=== PATIENT | male | born 1955 | race Caucasian/White ===

== ENCOUNTER → 2024-09-30 | Outpatient (CLI) | payer MEDICARE ==
[~2024-09-30] MED LIST: BUPR100ER PO; ISOMON30 PO
[2024-10-01 12:45] LABS: Adenovirus F 40/41 Not Detected (NOT DETECT); Astrovirus Not Detected (NOT DETECT); Campylobacter Sp Not Detected (NOT DETECT); Cryptosporidium Not Detected (NOT DETECT); Cyclospora Cayetanensis Not Detected (NOT DETECT); E. Coli O157 Not Detected (NOT DETECT); Entamoeba Histolytica Not Detected (NOT DETECT); Enteroaggregative E. coli-EAEC Not Detected (NOT DETECT); Enteropathogenic E. coli-EPEC Not Detected (NOT DETECT); Enterotoxigenic E. coli-ETEC Not Detected (NOT DETECT); Giardia Lamblia Not Detected (NOT DETECT); Norovirus GI/GII Not Detected (NOT DETECT); Plesiomonas Shigelloides Not Detected (NOT DETECT); Rotavirus A Not Detected (NOT DETECT); Salmonella Sp Not Detected (NOT DETECT); Sapovirus Not Detected (NOT DETECT); Shiga Toxin-prod E. coli-STEC Not Detected (NOT DETECT); Shigella/Enteroin E. coli-EIEC Not Detected (NOT DETECT); Vibrio Cholerae Not Detected (NOT DETECT); Vibrio Sp Not Detected (NOT DETECT); Yersinia Enterocolitica Not Detected (NOT DETECT)
[2024-10-05 21:31] LABS: CALPROTECTIN,FECAL 9 ug/g (<=49)
== END ==
LOC: LAB 09:49 → LAB SHORT 09:49
PROVIDERS: Student in an Organized Health Care Education/Training Program
DX: K52.9 Noninfective gastroenteritis and colitis, unspecified (principal)
CPT/HCPCS: 83993; 87507

== ENCOUNTER 2024-12-30 08:39 | Inpatient (IN) | payer MEDICARE ==
[~2024-12-30] VITALS: Ht 175.3 cm; Wt 87.3 kg
[2024-12-30] VITALS (11 sets, daily range): BP systolic 56–103; BP diastolic 35–75
[2024-12-30] MEDS ORDERED: Aspirin 300 MG Supp PR ONE (09:25)
[2024-12-30] MEDS ORDERED: Verapamil HCL 2.5 MG/ML 2ML Injection ONE (09:27)
[2024-12-30] MEDS ORDERED: Heparin Sodium 1000 Units/ML 10ML MDV ONE ×3 (09:27→10:45)
[2024-12-30] MEDS ORDERED: NS 1,000 ML IV ONE ×6 (09:28→18:00)
[2024-12-30] MEDS ORDERED: Phenylephrine HCl 100 MCG/ML-NS 10MLSYR (1MG/10ML) ONE (09:28)
[2024-12-30] MEDS ORDERED: Nitroglycerin 2 MG/20 ML BTL ONE (09:28)
[2024-12-30] MEDS ORDERED: NS 250 ML IV ONE (09:28)
[2024-12-30] MEDS ORDERED: Atropine Sulfate 0.1 MG/ML 10ML SYR ONE ×2 (09:28→10:37)
[2024-12-30] MEDS ORDERED: NiCARdipine HCL 1,000 MCG/5 ML SYR ONE (09:29)
[2024-12-30 09:35] LABS: BASOPHILS ABSOLUTE AUTO 0.04 K/mm3 (0.00-0.23); BASOPHILS PERCENT AUTO 1 % (0-2); EOSINOPHILS ABSOLUTE AUTO 0.09 K/mm3 (0.00-0.68); EOSINOPHILS PERCENT AUTO 1 % (0-6); Hematocrit 49.7 % (37.0-53.0); Hemoglobin 16.3 g/dL (13.5-17.5); IMMATURE GRAN ABSOLUTE AUTO 0.06 K/mm3 (0.00-0.10); IMMATURE GRAN PERCENT AUTO 1 % (0-1); LYMPHOCYTES ABSOLUTE AUTO 2.93 K/mm3 (0.84-5.20); LYMPHOCYTES PERCENT AUTO 45 % (21-46); MONOCYTES ABSOLUTE AUTO 0.94 K/mm3 (0.16-1.47); MONOCYTES PERCENT AUTO 14 % (4-13); Mean Corpuscular HGB 30.4 pg (26.0-34.0); Mean Corpuscular HGB Conc 32.8 g/dL (31.5-36.5); Mean Corpuscular Volume 93 fL (80-100); Mean Platelet Volume 10.9 fL (9.1-12.4); NEUTROPHILS ABSOLUTE AUTO 2.49 K/mm3 (1.96-9.15); NEUTROPHILS PERCENT AUTO 38 % (41-73); NRBC ABSOLUTE 0.02 K/mm3 (0.00-0.02); NRBC Auto 0.3 /100 WBC (0.0-0.2); Platelet Count 189 K/mm3 (150-400); RDW Coefficient Variation 12.8 % (11.7-14.2); RDW Standard Deviation 43.4 fL (35.1-46.3); Red Blood Cell Count 5.36 M/mm3 (4.30-5.90); White Blood Cell Count 6.55 K/mm3 (4.00-11.30)
[2024-12-30] MEDS ORDERED: FentaNYL Citrate 50 MCG/ML 2 ML Injection ONE ×6 (09:41→13:57)
[2024-12-30] MEDS ORDERED: Midazolam HCl 1MG / ML 2ML Vial ONE ×7 (09:42→11:45)
[2024-12-30] MEDS ORDERED: Amiodarone HCl 50 MG / ML 3 ML Amp ONE (09:48)
[2024-12-30 09:50] LABS: Alanine Aminotransfer (ALT/SGP 74 U/L (12-78); Albumin, Blood 3.4 g/dL (3.4-5.0); Alk Phos 83 U/L (50-136); Anion Gap 9 mmol/L (3-11); Aspartate Aminotrans (AST/SGOT 71 U/L (12-37); Bilirubin, Total 0.8 mg/dL (0.1-1.0); Blood Urea Nitrogen 14 mg/dL (8-24); Bun/Creatinine Ratio 12.6 (12.0-20.0); CHOL/HDL RATIO 4.7; CO2, Blood 27 mmol/L (21-32); Calcium, Blood 8.9 mg/dL (8.5-10.1); Chloride, Blood 108 mmol/L (98-108); Cholesterol 182 mg/dL (50-200); Creatinine, Blood 1.11 mg/dL (0.60-1.20); Globulin, Blood 3.5 g/dL (2.2-4.0); Glomerular Filtration Rate 72 (60-); Glucose, Blood 105 mg/dL (70-99); HDL Cholesterol 39 mg/dL (>39); LDL/HDL RATIO 2.5; Low Density Lipoprotein Chol 99 mg/dL (0-110); Magnesium, Blood 2.1 mg/dL (1.6-2.4); Potassium, Blood 4.6 mmol/L (3.5-5.5); Sodium, Blood 139 mmol/L (136-145); Total Protein, Blood 6.9 g/dL (6.4-8.2); Triglycerides 218 mg/dL (30-160); Very Low Density Lipoprot Chol 43 mg/dL (6-32)
[2024-12-30] MEDS ORDERED: EpiNEPhrine 1 MG/1 ML 1ML Vial ONE ×2 (10:03→10:14)
[2024-12-30] MEDS ORDERED: Dextrose 5% 250 ML IV ONE (10:11)
[2024-12-30 10:13] LABS: PCO2 Arterial 41.8 mmHg (35-45); PO2 Arterial 61.4 mmHg (80-100); pH Blood Arterial 7.26 (7.35-7.45)
[2024-12-30] MEDS ORDERED: prasugrel HCL 10 MG TABLET PO ONE (10:55)
[2024-12-30] MEDS ORDERED: Heparin Sodium,Porcine/0.5 NS 500 ML IV SCH (11:20)
--- NOTE | 2024-12-30 11:45 | NUR ---
"Spiritual Care | Code Blue Pt. is in ED26 when I arrive. Nurse Employee Relations Assistant contacted spouse who arrived to the ED while staff was still doing compressions. Met spouse in the consult room with the nurse manager system. Facilitated life review with Spouse (Sirena), who shares that both Pt. and Spouse are people of negro. Prayed with the Spouse and normalized the pt. experience. Spouse displays evidence of great trust. Escort spouse to the label machine operator waiting area. Facilitated more life review and considered matters of negro and family. Spouse displayed evidence of being encouraged and yet realistic about the Pts. condition. The family bingo cashier arrived and this commercial baker helper excused himself. Spouse verbalized gratitude for the spiritual care visit and support. Will remain available to the Pt. and Spouse."
[2024-12-30] MEDS ORDERED: NS 1,000 ML IV SCH (12:35)
[2024-12-30] MEDS ORDERED: Dopamine/Dextrose 250 ML IV SCH (12:45)
[2024-12-30] MEDS ORDERED: Vasopressin 20 UNITS in NS 100 ML IV SCH (12:50)
[2024-12-30] MEDS ORDERED: Cetylpyridinium Chloride 1 EA MISC MT SCH (12:50)
[2024-12-30] MEDS ORDERED: Dextrose 5% 500 ML IV SCH (13:15)
[2024-12-30] MEDS ORDERED: NS 500 ML IV SCH (13:15)
[2024-12-30] MEDS ORDERED: Dextrose 5% 1,000 ML IV ONE (13:23)
[2024-12-30] MEDS ORDERED: Vancomycin HCL 1,000 MG in NS 250 ML IV ONE (13:45)
[2024-12-30] MEDS ORDERED: DOBUtamine 250 MG/D5W 250 ML 250 ML IV SCH (13:45)
[2024-12-30] MEDS ORDERED: Cefepime HCl 1,000 MG in NS 100 ML IV SCH (14:00)
[2024-12-30] MEDS ORDERED: FentaNYL Citrate 50 MCG/ML 2 ML Injection IV PRN (14:05)
[2024-12-30 14:25] LABS: PO2 Arterial 67.2 mmHg (80-100); pH Blood Arterial 7.18 (7.35-7.45)
--- NOTE | 2024-12-30 14:38 | NUR ---
"Spiritual Care | family Support Pt. is in ICU2, being prepped for transfer to [facility] in [place]. Facilitate a supportive update with Spouse. Other support is present. Spouse is seeking confirmation about transfer plans in [place]. Listen with interest and empathy. Help Spouse identify a contact number for the hospital in [place]. Spouse verbalized gratitude for the spiritual care visit."
[2024-12-30] MEDS ORDERED: SuccINYLCHOLINE Chloride 200 MG/10 ML 10MLSYR IV ONE (15:57)
[2024-12-30] MEDS ORDERED: Heparin Sodium,Porcine 5,000 UNIT/0.5 ML SDV SC ONE (15:57)
[2024-12-30] MEDS ORDERED: Magnesium Sulfate 500 MG / ML 2ML Vial IV ONE (15:57)
[2024-12-30] MEDS ORDERED: Midazolam HCl 1MG / ML 2ML Vial IV ONE (15:57)
[2024-12-30] MEDS ORDERED: EPINEPhrine HCl 0.1 MG/ML 10ML SYR IV ONE (15:57)
[2024-12-30] MEDS ORDERED: DOPamine 400 MG/Dextrose 250 ML Bag IV ONE (15:57)
[2024-12-30] MEDS ORDERED: Sodium Bicarb 8.4% 50 mEq Syringe IV ONE (15:57)
[2024-12-30] MEDS ORDERED: Hydrogen Peroxide 1.5 % Solution MT SCH (16:00)
--- NOTE | 2024-12-30 16:04 | NUR ---
"Spiritual Care | REACH transport Escorted Pt. and her local oriental orthodox pastors to the [facility]. Helicopter was off the ground @1600. Lucía sosaed vinicio for the spiritual care support."
--- NOTE | 2024-12-30 16:28 | NUR ---
BLOCK CHART NOTE PT ARRIVED TO ICU 2 VIA BED AT 1309. PT ARRIVED VENTED, S/P CODE BLUE AND DEPARTMENT STORE GENERAL MANAGER INTERVENTION. PT ARRIVED WITH IMPELLA LVAD TO RIGHT FEMORAL SITE. IMPELLA PLACED AT 90 CM, WITH SHEATH C/D/I, LOCKED. IMPELLA SET AT P LEVEL 5. PA CATH IN PLACE TO LEFT FEMORAL SITE. PA CATH CONNECTED TO ICU MONITOR AND CARDIAC CALCS DONE. SEE VS FLOWSHEET FOR CALCS. TRANS VENOUS PACER TO LEFT FEMORAL SITE IN PLACE SET AT 70/10/2.5. PT WITH GOOD CAPTURE NOTED ON MONITOR UPON ARRIVAL AND THROUGHOUT TIME IN ICU. VENOUS AND ARTERIAL CORDIS PRESENT TO LEFT GROIN SITE. ARTERIAL CORDIS CONNECTED TO MONITOR AND GOOD ARTERIAL WAVEFORM NOTED. PT WITH OGT IN PLACE, CLAMPED. TORREZ TEMP PROBE IN PLACE WITH 50 CC URINE OUTPUT NOTED WHILE IN ICU. MULTIPLE PIV'S IN PLACE. PT ARRIVED WITH LEVOPHED, DOPAMINE, AMIODARONE, AND HEPARIN INFUSING. SEE ICU FLOWSHEET FOR TITRATIONS. VASOPRESSIN STARTED AT 0.04 U/HR. PT WITH CONTINUED HYPOTENSION AFTER ARRIVAL, LEVOPHED TITRATED UP TO 50 MCG/MIN, AND DOPAMINE TO 25 MCG/KG/MIN. DR MOORE AT BEDSIDE MULTIPLE TIMES. PT STARTED ON DOBUTAMINE GTT AND TOLERATED POORLY. PT RECIEVED 1L NS BOLUS AND DOBUTAMINE DC'D. PT WITH EPISODE OF RESTLESSNESS AND ATTEMPTING TO SIT UP IN BED. PT MED WITH FENTANYL PRN PER EMAR AND BREIFLY STARTED ON PROPOFOL GTT, BUT BECAME INCREASINGLY HYPOTENSIVE AND DC'D PROPOFOL. PT RESPONDED WELL TO FENTANYL IVP FOR SEDATION. CXR DONE AND LABS SENT ORDERED. IV ABX SENT WITH REACH CREW TO INFUSE IN ROUTE. REACH TRANSPORT TEAM ARRIVED AT 1410. REPORT GIVEN TO REACH RN'S AND ASSISTED WITH PROLONGED SWITCH TO REACH EQUIPMENT FOR TRANSFER. PT LEFT THE ICU AND TAKEN TO HELICOPTER AT 1545. PT FAMILY AT BEDSIDE AND UPDATED TO PT CONDITION AND PLAN THROUGHOUT THE PROCESS. REPORT CALLED TO WILFRID FRANCIS AT [facility] AT 1600. ALL PT BELONGINGS SENT WITH PT FAMILY.
--- NOTE | 2024-12-30 16:43 | NUR ---
IMPELLA VS AND FLOW RATES UNABLE TO OBTAIN Q 15M VS DUE TO PT CRITICAL CONDITON. DURING THE TIME PT IN DOCK SUPERVISOR AND IN ICU THE AO MEAN WAS 65 AND LVEDP MEAN WAS 35. AO SYSTOLIC PRESSURES RANGED FROM 40-90. IMPELLA CO 2.8 L/MIN AND ADULT BASIC EDUCATION MANAGER 0.4. PURGE FLOW 13.6.
[2024-12-30] MEDS ORDERED: Dextrose 5% 1,000 ML IV SCH (17:55)
[2024-12-30] MEDS ORDERED: EPINEPhrine HCl 0.1 MG/ML 10ML SYR XX ONE (18:05)
[2024-12-30] MEDS ORDERED: Atorvastatin 40 MG Tab PO SCH (21:00)
[2024-12-31] MEDS ORDERED: Pantoprazole Sodium 40 MG Injection IV SCH (06:00)
[2024-12-31] MEDS ORDERED: prasugrel HCL 10 MG TABLET PO SCH (09:00)
[2024-12-31] MEDS ORDERED: Aspirin 81 MG Chew PO SCH (09:00)
== END 2024-12-30 15:45 | disposition short-term general hospital (02) | DRG 215 ==
LOC: ER 08:39 → ICUE 09:28
PROVIDERS: Student in an Organized Health Care Education/Training Program; ADMIT Internal Medicine Cardiovascular Disease
PROC: 027034Z Dilation of Coronary Artery, One Artery with Drug-eluting Intraluminal Device, Percutaneous Approach (ICD-10-PCS; principal; 2024-12-30)
PROC: 02HA3RZ Insertion of Short-term External Heart Assist System into Heart, Percutaneous Approach (ICD-10-PCS; 2024-12-30)
PROC: 5A0221D Assistance with Cardiac Output using Impeller Pump, Continuous (ICD-10-PCS; 2024-12-30)
PROC: 5A12012 Performance of Cardiac Output, Single, Manual (ICD-10-PCS; 2024-12-30)
PROC: 3E033XZ Introduction of Vasopressor into Peripheral Vein, Percutaneous Approach (ICD-10-PCS; 2024-12-30)
PROC: 5A2204Z Restoration of Cardiac Rhythm, Single (ICD-10-PCS; 2024-12-30)
PROC: 0BH17EZ Insertion of Endotracheal Airway into Trachea, Via Natural or Artificial Opening (ICD-10-PCS; 2024-12-30)
PROC: 5A1935Z Respiratory Ventilation, Less than 24 Consecutive Hours (ICD-10-PCS; 2024-12-30)
PROC: 4A023N8 Measurement of Cardiac Sampling and Pressure, Bilateral, Percutaneous Approach (ICD-10-PCS; 2024-12-30)
PROC: B2111ZZ Fluoroscopy of Multiple Coronary Arteries using Low Osmolar Contrast (ICD-10-PCS; 2024-12-30)
PROC: 5A1223Z Performance of Cardiac Pacing, Continuous (ICD-10-PCS; 2024-12-30)
DX: I21.09 ST elevation (STEMI) myocardial infarction involving other coronary artery of anterior wall (principal); I46.2 Cardiac arrest due to underlying cardiac condition; I49.01 Ventricular fibrillation; R57.0 Cardiogenic shock; J96.90 Respiratory failure, unspecified, unspecified whether with hypoxia or hypercapnia; I48.91 Unspecified atrial fibrillation; R00.1 Bradycardia, unspecified; I35.1 Nonrheumatic aortic (valve) insufficiency; I25.10 Atherosclerotic heart disease of native coronary artery without angina pectoris; Z87.891 Personal history of nicotine dependence; Z88.8 Allergy status to other drugs, medicaments and biological substances
CPT/HCPCS: 33210; 33990; 51702; 71045; 76937; 80053; 80061; 82803; 83036; 83605; 83735; 84484; 85025; 85347; 85520; 86850; 86900; 86901; 92950; 93005; 93010; 93306; 93460; 94002; 96374; 96375; 99152; 99153; A9270; C1725; C1751; C1760; C1769; C1874; C1887; C1894; C9600; J0171; J0282; J0330; J0461; J0692; J1250; J1265; J1644; J2250; J2371; J3010; J3475; J7030; J7040; J7050; J7060; J7070; Q9967